=== PATIENT | male | born 1985 | race African-American/Black ===

== ENCOUNTER 2016-07-17 21:05 | Emergency (ER) | payer OTHER ==
[~2016-07-17] VITALS: Ht 185.4 cm; Wt 79.1 kg
[~2016-07-17 21:05] MED LIST: NOHOMEMEDS
[2016-07-17 21:16] VITALS: BP 132/94
[2016-07-17] MEDS ORDERED: NAPROSYN500 MG PO (21:17)
[2016-07-17] MEDS ORDERED: FLEXERIL10 MG PO (21:18)
== END 2016-07-17 21:37 | disposition home or self-care (01) ==
LOC: EME 21:05
DX: S13.9XXA Sprain of joints and ligaments of unspecified parts of neck, initial encounter (principal); V49.40XA Driver injured in collision with unspecified motor vehicles in traffic accident, initial encounter
CPT/HCPCS: 99281; 99282